=== PATIENT | male | born 1980 | race Hispanic/Latino ===

== ENCOUNTER 2016-12-17 16:58 | Emergency (ER) | payer OTHER ==
[~2016-12-17] VITALS: Ht 165.1 cm; Wt 63.6 kg
[2016-12-17 17:37] LABS: HEMATOCRIT 44.7 % (39.0-50.0); HEMOGLOBIN 15.6 g/dl (14.0-18.0); IMMATURE GRANULOCYTES 0.7 % (0.0-1.0); MEAN CELL VOLUME 90.1 fL CALC (80.0-100.0); MEAN CORPUSCULAR HGB 31.5 pG CALC (26.0-32.0); MEAN CORPUSCULAR HGB CONC 34.9 g/L CALC (32.0-36.0); NEUT# 13.52 thou/uL (1.82-7.42); RED BLOOD COUNT 4.96 mill/uL (4.70-6.10); RED CELL DISTRI WIDTH 13.2 % (11.5-15.5)
[2016-12-17 17:47] LABS: ALBUMIN 4.7 g/dL (3.2-5.0); ALKALINE PHOSPHATASE 113 u/l (38-126); ANION GAP 18 (6-22 (CALC)); BUN 29 mg/dL (9-20); BUN/CREATININE RATIO 23 (12-20 (CALC)); CALCIUM 9.7 mg/dL (8.4-10.2); CARBON DIOXIDE 21 mmol/l (22-30); CHLORIDE 97 mmol/l (95-108); CREATININE 1.2 mg/dL (0.7-1.3); GFR > 60 ML/MIN (>=60 (CALC)); GFR FOR AFR.AMER. > 60 ML/MIN (>=60 (CALC)); GLUCOSE 165 mg/dL (75-110); POTASSIUM 4.1 mmol/l (3.5-5.1); SGOT/AST 48 u/l (17-59); SGPT/ALT 49 u/l (21-72); SODIUM 133 mmol/l (137-146); TOTAL PROTEIN 8.3 g/dL (6.3-8.2)
[2016-12-17 17:58] LABS: MYOGLOBIN 76 ng/mL (0 - 121)
[2016-12-17 18:44] LABS: URINE BILIRUBIN - DIPSTICK NEGATIVE (NEGATIVE); URINE BLOOD DIPSTICK TRACE-INTACT (NEGATIVE); URINE CLARITY CLEAR; URINE COLOR YELLOW; URINE GLUCOSE - DIPSTICK NEGATIVE (NEGATIVE); URINE KETONE TRACE mg/dL (NEGATIVE); URINE LEUK ESTERASE NEGATIVE (NEGATIVE); URINE NITRITE - DIPSTICK NEGATIVE (Negative); URINE PROTEIN - DIPSTICK TRACE mg/dL (NEG-TRACE); URINE SPECIFIC GRAVITY 1.025; URINE UROBILINOGEN - DIPSTICK 0.2 E.U./dL (0.2)
[2016-12-17 18:48] LABS: BARBITURATES NEGATIVE (NEGATIVE); COCAINE NEGATIVE (NEGATIVE); METHADONE NEGATIVE (NEGATIVE); OXCYCODONE NEGATIVE (NEGATIVE); TETRAHYDROCANNABIONOL NEGATIVE (NEGATIVE); TRICYLIC ANTIDEPRESSANTS NEGATIVE (NEGATIVE)
[2016-12-17] MEDS ORDERED: AMOXICILLIN500 MG PO (21:28)
[2016-12-17 21:48] VITALS: BP 107/62
== END 2016-12-17 21:48 | disposition home or self-care (01) | DRG 313 ==
LOC: EDBD 16:58 → ED 16:58
PROVIDERS: Emergency Medicine
DX: R07.89 Other chest pain (principal); E86.0 Dehydration; D72.829 Elevated white blood cell count, unspecified; R06.4 Hyperventilation; R06.02 Shortness of breath; F17.210 Nicotine dependence, cigarettes, uncomplicated

== ENCOUNTER 2016-12-18 11:27 | Emergency (ER) | payer SELFPAY ==
[~2016-12-18] VITALS: Ht 167.6 cm; Wt 62.8 kg
[~2016-12-18 11:27] MED LIST: AMOXICILLIN500 MG PO
[2016-12-18 12:52] LABS: MYOGLOBIN 29 ng/mL (0 - 121)
[2016-12-18 13:05] VITALS: BP 112/71
[2016-12-18 18:32] LABS: HEMATOCRIT 43.8 % (39.0-50.0); HEMOGLOBIN 14.8 g/dl (14.0-18.0); IMMATURE GRANULOCYTES 0.4 % (0.0-1.0); MEAN CELL VOLUME 95.6 fL CALC (80.0-100.0); MEAN CORPUSCULAR HGB 32.3 pG CALC (26.0-32.0); MEAN CORPUSCULAR HGB CONC 33.8 g/L CALC (32.0-36.0); NEUT# 4.72 thou/uL (1.82-7.42); RED BLOOD COUNT 4.58 mill/uL (4.70-6.10); RED CELL DISTRI WIDTH 14.2 % (11.5-15.5)
== END 2016-12-18 13:30 | disposition home or self-care (01) | DRG 313 ==
LOC: ED 11:27
PROVIDERS: Emergency Medicine
DX: R07.9 Chest pain, unspecified (principal); D72.829 Elevated white blood cell count, unspecified; G89.29 Other chronic pain; F17.210 Nicotine dependence, cigarettes, uncomplicated

== ENCOUNTER 2018-12-11 11:49 | Emergency (ER) | payer SELFPAY ==
[~2018-12-11] VITALS: Ht 167.6 cm; Wt 62.0 kg
[2018-12-11] MEDS ORDERED: QUETIAPINE FUMA50 MG PO (12:05)
[2018-12-11] MEDS ORDERED: CLONAZEPAM1 MG PO (12:07)
[2018-12-11] MEDS ORDERED: PAROXETINE10 MG PO (12:08)
[2018-12-11 13:30] LABS: HEMATOCRIT 44.1 % (39.0-50.0); HEMOGLOBIN 14.6 g/dl (14.0-18.0); IMMATURE GRANULOCYTES 0.6 % (0.0-5.0); MEAN CELL VOLUME 93.8 fL CALC (80.0-100.0); MEAN CORPUSCULAR HGB 31.1 pG CALC (26.0-32.0); MEAN CORPUSCULAR HGB CONC 33.1 g/L CALC (32.0-36.0); NEUT# 6.75 thou/uL (1.82-7.42); RED BLOOD COUNT 4.7 mill/uL (4.70-6.10); RED CELL DISTRI WIDTH 13.6 % (11.5-15.5)
[2018-12-11 13:31] LABS: ALBUMIN 3.8 g/dL (3.2-5.0); ALKALINE PHOSPHATASE 79 u/l (38-126); AMYLASE 42 u/l (30-110); ANION GAP 15 (6-22 (CALC)); BILIRUBIN, TOTAL 0.6 mg/dL (0.0-1.4); BUN 22 mg/dL (9-20); BUN/CREATININE RATIO 28 (12-20 (CALC)); CARBON DIOXIDE 23 mmol/l (22-30); CHLORIDE 104 mmol/l (95-108); CREATININE 0.8 mg/dL (0.7-1.3); GFR > 60 ML/MIN (>=60 (CALC)); GFR FOR AFR.AMER. > 60 ML/MIN (>=60 (CALC)); LIPASE 90 u/l (23-300); POTASSIUM 3.8 mmol/l (3.5-5.1); SGOT/AST 23 u/l (17-59); SODIUM 138 mmol/l (137-146)
[2018-12-11 13:32] LABS: TOTAL PROTEIN 6.5 g/dL (6.3-8.2)
[2018-12-11 13:44] LABS: MYOGLOBIN 29 ng/mL (0 - 121)
[2018-12-11 15:18] LABS: URINE BILIRUBIN - DIPSTICK NEGATIVE (NEGATIVE); URINE BLOOD DIPSTICK SMALL (NEGATIVE); URINE COLOR YELLOW; URINE GLUCOSE - DIPSTICK NEGATIVE (NEGATIVE); URINE KETONE NEGATIVE (NEGATIVE); URINE LEUK ESTERASE NEGATIVE (NEGATIVE); URINE NITRITE - DIPSTICK NEGATIVE (Negative); URINE PH 5.5 (4.5-8.0); URINE PROTEIN - DIPSTICK NEGATIVE (NEG-TRACE); URINE UROBILINOGEN - DIPSTICK 0.2 E.U./dL (0.2)
[2018-12-11 15:39] LABS: URINE SQUAMOUS EPITHELIAL CELL FEW EPI/hpf (0-FEW)
[2018-12-11] MEDS ORDERED: NAPROSYN500 MG PO (16:50)
[2018-12-11 17:05] VITALS: BP 121/75
== END 2018-12-11 17:30 | disposition home or self-care (01) | DRG 313 ==
LOC: ED 11:49
PROVIDERS: Emergency Medicine
DX: R07.89 Other chest pain (principal); F17.210 Nicotine dependence, cigarettes, uncomplicated